=== PATIENT | female | born 1975 | race Caucasian/White ===

== ENCOUNTER 2023-02-04 14:08 | Emergency (ER) | payer SELFPAY ==
[2023-02-04] VITALS (10 sets, daily range): BP systolic 97–146; BP diastolic 68–85; PULSE 73–84; RESP 14–27; TEMP 36.4; O2SAT 98–99; BMI 24.6
--- NOTE | 2023-02-04 14:31 | ECG_ITS ---
The [facility] Test Date: 2023-02-04 Pat Name: CONTRERAS PARKER Department: Room: - Gender: Female Lead Systems Developer: : 1975 Requested By: Order Number: [id number] Reading MD: DU RAYGOZA Measurements Intervals [place] Rate: 75 P: 79 HI: 160 QRS: 90 QRSD: 88 T: 66 QT: 380 QTc: 409 Interpretive Statements 1100 Sinus rhythm 9110 normal ECG No previous ECG available for comparison Electronically Signed On 02-05-2023 19:58:29 EST by DU RAYGOZA
--- NOTE | 2023-02-04 14:31 | XR_ITS ---
The [address] [address] Patient Name: CONTRERAS PARKER MRN: [id number] date: 1975 Sex: F Assigned Patient Location: ER Current Patient Location: ER Accession/Order Number: [id number] Exam Date: 02/04/2023 14:48 Report Date: 02/04/2023 15:17 At the request of: ERNESTO RAMIRES Procedure: XR chest 1V EXAMINATION: XR chest 1V HISTORY: Palpitations COMPARISON: None. TECHNIQUE: Portable chest FINDINGS: The lung parenchyma is free of consolidation or infiltrate. No pneumothorax or pleural effusion. The cardiac, mediastinal and hilar contours are normal. The visualized osseous structures exhibit no gross abnormality. XR/XR chest 1V IMPRESSION: No acute cardiopulmonary abnormality. Electronically authenticated by: YARIEL SHAW Date: 02/04/2023 15:17
--- NOTE | 2023-02-04 14:32 | ED_ITS ---
HPI - Arrhythmia/Palpitations General Chief Complaint: Arrhythmia/Palpitations Stated Complaint: FAST HEART RATE Time Seen by Provider: 02/04/23 14:20 Source: patient Mode of arrival: walk-in History of Present Illness HPI narrative: Patient felt her heart racing while at work and developed dizziness and numbness/tingling of the lips and face. She told me that she felt like I was going to pass out. She left work and went home to try and rest. The she came to the ED for evaluation. The symptoms are now gone . No prior history of similar. She denied any personal cardiac history. Patient is a smoker. Has not seen a physician for decades. Takes no prescribed meds or OTC supplements. Works as a cook. Related Data Home Medications Medication Instructions Recorded Confirmed No Known Home Medications 02/04/23 02/04/23 Allergies Allergy/AdvReac Type Severity Reaction Status Date / Time codeine Allergy Severe Verified 02/04/23 14:17 Penicillins Allergy Severe Verified 02/04/23 14:17 Exam Narrative Exam Narrative: Nurses notes and vital signs reviewed and patient is not hypoxic. afebrile General: Well-appearing and in no apparent distress. Skin: Warm, dry, no pallor noted. No rash. Head: Normocephalic, atraumatic. Neck: Supple, non-tender. Eye: Pupils are equal, round and EOMI. No scleral icterus. Ears, Nose, Mouth, and Throat: TM are clear, no nasal mucosal hypertrophy. Oral mucosa is moist, no posterior oropharynx erythema, uvula is mid-line Cardiovascular: Regular Rate and Rhythm without murmur, gallop or rub. Respiratory: No accessory muscle use or respiratory distress. Lungs are clear to auscultation, no wheezing, rales or rhonchi Musculoskeletal: normal ROM, no calf or popliteal tenderness, no lower extremity edema/swelling GI: Abdomen is soft, non-distended. Normal bowel sounds. No masses appreciated. No tenderness to palpation. No rebound, guarding, or rigidity noted. Neurological: A&O x4. No cranial nerve dysfunction observed. No truncal ataxia. Moves all extremities. Sensation intact. Psychiatric: Cooperative and interactive. Normal mood and affect. Constitutional Vital Signs, click to edit/add: Last Vital Signs Temp 97.5 F L 02/04/23 14:14 Pulse 73 02/04/23 15:10 Resp 27 H 02/04/23 15:10 BP 97/68 02/04/23 15:00 Pulse Ox 98 02/04/23 14:15 O2 Del Method Room Air 02/04/23 14:14 Course Vital Signs Vital signs: Vital Signs Temperature 97.5 F L 02/04/23 14:14 Pulse Rate 79 02/04/23 14:14 Respiratory Rate 20 02/04/23 14:14 Blood Pressure 146/85 H 02/04/23 14:14 Pulse Oximetry 99 02/04/23 14:14 Oxygen Delivery Method Room Air 02/04/23 14:14 Temperature 97.5 F L 02/04/23 14:14 Pulse Rate 73 02/04/23 15:10 Respiratory Rate 27 H 02/04/23 15:10 Blood Pressure 97/68 02/04/23 15:00 Pulse Oximetry 98 02/04/23 14:15 Oxygen Delivery Method Room Air 02/04/23 14:14 MDM - Arrhythmia/Palpitations MDM Narrative Medical decision making narrative: Patient was placed on conveyor monitor and EKG obtained. Blood drawn and sent for evaluation. CXR obtained CBC, BMP and TSH normal. EKG normal. CXR normal. On reassessment the patient still has some residual tingling on both sides of the face and across the mouth. No dysrhythmia observed in the ED. Electrolytes are normal. No chest pain, pressure, shortness of breath. Patient informed of results. I do not see a reason based on her current exam, signs and symptoms to admit her. However she does not have a local PCP. She was given referral information for local PCPs taking new patients. Discussed smoking cessation. Also discussed ED return for any return of worrisome symptoms. Lab Data Attestation: I reviewed the patient's lab results. Labs: Lab Results 02/04/23 Range/Units 14:25 WBC 11.0 (4.0-11.0) 10^3/uL RBC 4.86 (4.20-5.40) 10^6/uL Hgb 13.2 (12.0-16.0) g/dL Hct 40.3 (36.0-48.0) % MCV 82.9 (81.0-99.0) fL MCH 27.2 (26.7-34.0) pg MCHC 32.8 (29.9-35.2) g/dL RDW 16.8 H (11.0-15.0) % Plt Count 241 (150-450) 10^3/uL MPV 11.0 (9.5-13.5) fL Neut % (Auto) 59.7 (43.0-75.0) % Lymph % (Auto) 33.6 (20.5-60.0) % [place] % (Auto) 4.1 (1.7-12.0) % Eos % (Auto) 1.8 (0.9-7.0) % Baso % (Auto) 0.6 (0.2-2.0) % Neut # (Auto) 6.5 (1.4-6.5) 10^3/uL Lymph # (Auto) 3.7 (1.2-3.8) 10^3/uL [place] # (Auto) 0.5 (0.3-0.8) 10^3/uL Eos # (Auto) 0.2 (0.0-0.7) 10^3/uL Baso # (Auto) 0.1 (0.0-0.1) 10^3/uL Abs Immat Gran (auto) 0.02 (0.00-0.03) 10^3/uL Imm/Tot Granulo (auto) 0.2 (0.0-0.5) % Sodium 141 (136-145) mmol/L Potassium 3.6 (3.5-5.1) mmol/L Chloride 103 (98-107) mmol/L Carbon Dioxide 27.5 (21.0-32.0) mmol/L Anion Gap 14.1 BUN 16.0 (7.0-18.0) mg/dL Creatinine 0.92 (0.55-1.02) mg/dL Est GFR ( Amer) >60 (>=60) Est GFR (Non-Af Amer) >60 (>=60) BUN/Creatinine Ratio 17.4 Glucose 125 H (74-106) mg/dL Calcium 8.5 (8.5-10.1) mg/dL TSH 3.603 (0.358-3.740) uIU/mL Imaging Data Chest x-ray: Radiologist's impression: Patient Name: CONTRERAS PARKER MRN: [id number] date: 1975 Sex: F Assigned Patient Location: ER Current Patient Location: ER Accession/Order Number: [id number] Exam Date: 02/04/2023 14:48 Report Date: 02/04/2023 15:17 At the request of: ERNESTO RAMIRES Procedure: XR chest 1V EXAMINATION: XR chest 1V HISTORY: Palpitations COMPARISON: None. TECHNIQUE: Portable chest FINDINGS: The lung parenchyma is free of consolidation or infiltrate. No pneumothorax or pleural effusion. The cardiac, mediastinal and hilar contours are normal. The visualized osseous structures exhibit no gross abnormality. IMPRESSION: No acute cardiopulmonary abnormality. Electronically authenticated by: YARIEL SHAW Date: 02/04/2023 15:17 ECG Data Attestation: I personally reviewed and interpreted this ECG as follows: Interpretation: EKG interpretation: Emergency Department physician interpretation. Normal sinus rhythm at 75bpm. Normal axis, normal intervals and no ST segment elevation or depression. Normal EKG. Discharge Plan Discharge Chief Complaint: Arrhythmia/Palpitations Clinical Impression: Palpitations, Facial paresthesia Time of Disposition Decision: 15:27 Prescriptions / Home Meds: No Action No Known Home Medications Instructions: Heart Palpitations (ED), Paresthesia (ED) Stand Alone Forms: Portal Instructions Referrals: HUSSEIN HOLMAN APRN [Physician] - As soon as possible
[2023-02-04 14:55] LABS: Basophils Absolute Auto 0.1 10^3/uL (0.0-0.1); Basophils Percent Auto 0.6 % (0.2-2.0); Eosinophils Absolute Auto 0.2 10^3/uL (0.0-0.7); Eosinophils Percent Auto 1.8 % (0.9-7.0); Hematocrit 40.3 % (36.0-48.0); Hemoglobin 13.2 g/dL (12.0-16.0); Immature Granulocytes Abs Auto 0.02 10^3/uL (0.00-0.03); Immature Granulocytes Pct Auto 0.2 % (0.0-0.5); Lymphocytes Absolute Auto 3.7 10^3/uL (1.2-3.8); Lymphocytes Percent Auto 33.6 % (20.5-60.0); Mean Corpuscular HGB Conc 32.8 g/dL (29.9-35.2); Mean Corpuscular Hemoglobin 27.2 pg (26.7-34.0); Mean Corpuscular Volume 82.9 fL (81.0-99.0); Monocytes Absolute Auto 0.5 10^3/uL (0.3-0.8); Monocytes Percent Auto 4.1 % (1.7-12.0); Neutrophils Absolute Auto 6.5 10^3/uL (1.4-6.5); Neutrophils Percent Auto 59.7 % (43.0-75.0); Platelet Count 241 10^3/uL (150-450); Red Blood Count 4.86 10^6/uL (4.20-5.40); Red Cell Distribution Width 16.8 % (11.0-15.0)
[2023-02-04 15:16] LABS: Anion Gap 14.1; BUN Creatinine Ratio 17.4; Calcium 8.5 mg/dL (8.5-10.1); Carbon Dioxide 27.5 mmol/L (21.0-32.0); Chloride 103 mmol/L (98-107); Estimated GFR (African America >60 (>=60); Estimated GFR (Non-African Ame >60 (>=60); Glucose 125 mg/dL (74-106); Potassium 3.6 mmol/L (3.5-5.1); Sodium 141 mmol/L (136-145); Thyroid Stimulating Hormone 3.603 uIU/mL (0.358-3.740)
== END 2023-02-04 15:44 | disposition home or self-care (01) ==
PROVIDERS: Emergency Provider Emergency Medicine
DX: R00.2 Palpitations (principal); R20.2 Paresthesia of skin; F17.210 Nicotine dependence, cigarettes, uncomplicated
CPT/HCPCS: 36415; 71045; 80048; 84443; 85025; 93005; 99285

== ENCOUNTER 2024-03-23 08:02 | Emergency (ER) | payer SELFPAY ==
[2024-03-23 08:07] VITALS: BP 138/84; PULSE 58; TEMP 36.8; O2SAT 99; BMI 26.5
--- NOTE | 2024-03-23 08:21 | CT_ITS ---
The [address] [address] Patient Name: CONTRERAS PARKER MRN: [id number] date: 1975 Sex: F Assigned Patient Location: ED.MAIN Current Patient Location: ED.MAIN Accession/Order Number: [id number] Exam Date: 03/23/2024 08:50 Report Date: 03/23/2024 09:39 At the request of: SPRING DOBBINS Procedure: CT abdomen pelvis w con EXAM: CT abdomen pelvis w con HISTORY: Abd pain. COMPARISON: None. TECHNIQUE: Dose reduction techniques were achieved by using automated exposure control and/or adjustment of mA and/or kV according to patient size and/or use of iterative reconstruction technique.CT of the abdomen and pelvis with contrast. Standard protocol. Coronal and sagittal reformations were obtained. FINDINGS: Mild posterior dependent atelectasis of the bilateral lower lobes. Lung bases are otherwise clear. Gallbladder, spleen, pancreas, kidneys, distal esophagus, stomach, and adrenal glands are normal. Small nonspecific hypodensities of the inferior aspect of the right lobe of the liver, likely cysts. There is thickening of the proximal small bowel loops, may represent enteritis. No colonic dilation. No pericolonic fat stranding. Appendix is normal. Uterus is unremarkable by this technique. No inguinal, pelvic, or retroperitoneal adenopathy. Appendix is normal. No bladder wall thickening. No acute osseous abnormality. CT/CT abdomen pelvis w con IMPRESSION: 1. Nonspecific thickening of the proximal small bowel loops, may represent enteritis. 2. No colonic dilation. No pericolonic fat stranding. Appendix is normal. 3. Gallbladder is normal. 4. Other findings as described. Electronically authenticated by: TENZIN TELLO Date: 03/23/2024 09:39
--- NOTE | 2024-03-23 08:23 | ED_ITS ---
HPI HPI - General Adult General Chief complaint: Abdominal Pain Stated complaint: ABDOMINAL PAIN Time Seen by Provider: 03/23/24 08:14 Source: patient Mode of arrival: walk-in Limitations: no limitations History of Present Illness HPI narrative: Patient presents to ED complaining of abdominal pain. Patient states that she went to bed and everything was normal last night, she got up this morning and was still feeling okay. She said she went to work this morning at [employer] and started to get some sharp stabbing abdominal pains. She said the pain was doubling her over. When she explains where the pain is is more suprapubic and left lower quadrant area. She states she has never had a colonoscopy and she does not have any known history of diverticulitis or diverticulosis. She has never really had any bowel issues in the past. She did have a normal bowel movement this morning without any issues. She does report slight nausea but no vomiting. No fevers. No other complaints at this time. Related Data Previous Rx's ?Medication ?Instructions ?Recorded ondansetron 4 mg disintegrating 4 mg PO DAILY PRN nausea and 03/23/24 tablet vomiting #15 tabs Allergies Allergy/AdvReac Type Severity Reaction Status Date / Time codeine Allergy Severe Verified 02/04/23 14:17 Penicillins Allergy Severe Verified 02/04/23 14:17 Opioid HPI Opioid Management Most Recent Opioid Data: Last Pain Scale 8 03/23/24 08:34 03/23/24 Last MAR Pain Assessment 03/23/24 08:34 Review of Systems ROS Status of ROS 10 or more systems reviewed and unremark able except as noted in history and below PFSH PFSH Social History Little interest or pleasure in doing things: not at all Feeling down, depressed, or hopeless: not at all Exam Narrative Exam Narrative: Time Seen: [] Vital Signs: [Per nurse's notes.] General: [Alert] Skin: [Warm, dry, no rash.] Head: [Normocephalic, atraumatic.] Neck: [Supple, trachea midline.] Eye: [Pupils are equal, round and reactive to light, extraocular movements are intact, normal conjunctiva.] Ears, nose, mouth and throat: oral mucosa moist. Cardiovascular: [Regular rate and rhythm, no murmur.] Respiratory: [Lungs are clear to auscultation, respirations are non-labored, breath sounds are equal.] Chest wall: [No tenderness, no deformity.] Gastrointestinal: [Soft, tender to palpation suprapubic and left lower quadrant, non distended, normal bowel sounds.] MSK: 5 out of 5 muscle strength x 4 extremities no calf pain or edema Lymphatics: [No lymphadenopathy.] Psychiatric: [Cooperative, appropriate mood & affect.] Neurological: [Alert and oriented to person, place, time, and situation, no focal neurological deficit observed.] Constitutional Vital Signs, click to edit/add: Last Vital Signs Temp 98.2 F 03/23/24 08:07 Pulse 58 L 03/23/24 08:07 Resp 18 03/23/24 08:07 BP 138/84 03/23/24 08:07 Pulse Ox 99 03/23/24 08:07 Course Vital Signs Vital signs: Vital Signs Temperature 98.2 F 03/23/24 08:07 Pulse Rate 58 L 03/23/24 08:07 Respiratory Rate 18 03/23/24 08:07 Blood Pressure 138/84 03/23/24 08:07 Pulse Oximetry 99 03/23/24 08:07 Temperature 98.2 F 03/23/24 08:07 Pulse Rate 58 L 03/23/24 08:07 Respiratory Rate 18 03/23/24 08:07 Blood Pressure 138/84 03/23/24 08:07 Pulse Oximetry 99 03/23/24 08:07 Medical Decision Making MDM Narrative Medical decision making narrative: Patient's labs are negative for any acute findings. She does have nonspecific inflammation of the small bowel consistent with most likely enteritis. Normal appendix. No evidence of diverticulitis or bowel obstruction. Patient was given Zofran for home and today and tomorrow off work. Patient is to return to ED if worsening symptoms, severe pain vomiting blood in the stool or any further concerns. Patient is comfortable with care plan for home. Differential Diagnosis Differential Diagnosis: Gastroenteritis, diverticulitis, acute appendicitis, acute cholecystitis Lab Data Lab results reviewed: Yes I reviewed the patient's lab results Labs: Lab Results 03/23/24 03/23/24 Range/Units 08:15 08:25 WBC 12.1 H (4.0-11.0) 10^3/uL RBC 4.74 (4.20-5.40) 10^6/uL Hgb 13.1 (12.0-16.0) g/dL Hct 39.4 (36.0-48.0) % MCV 83.1 (81.0-99.0) fL MCH 27.6 (26.7-34.0) pg MCHC 33.2 (29.9-35.2) g/dL RDW 16.0 H (11.0-15.0) % Plt Count 208 (150-450) 10^3/uL MPV 10.9 (9.5-13.5) fL Neut % (Auto) 61.5 (43.0-75.0) % Lymph % (Auto) 29.6 (20.5-60.0) % [place] % (Auto) 4.8 (1.7-12.0) % Eos % (Auto) 3.3 (0.9-7.0) % Baso % (Auto) 0.6 (0.2-2.0) % Neut # (Auto) 7.5 H (1.4-6.5) 10^3/uL Lymph # (Auto) 3.6 (1.2-3.8) 10^3/uL [place] # (Auto) 0.6 (0.3-0.8) 10^3/uL Eos # (Auto) 0.4 (0.0-0.7) 10^3/uL Baso # (Auto) 0.1 (0.0-0.1) 10^3/uL Abs Immat Gran (auto) 0.03 (0.00-0.03) 10^3/uL Imm/Tot Granulo (auto) 0.2 (0.0-0.5) % Sodium 141 (136-145) mmol/L Potassium 4.2 (3.5-5.1) mmol/L Chloride 106 (98-107) mmol/L Carbon Dioxide 25.3 (21.0-32.0) mmol/L Anion Gap 13.9 BUN 15.0 (7.0-18.0) mg/dL Creatinine 0.73 (0.55-1.02) mg/dL Est GFR ( Amer) >60 (>=60 mL/min/1.73m^2) Est GFR (Non-Af Amer) >60 (>=60 mL/min/1.73m^2) BUN/Creatinine Ratio 20.5 Glucose 119 H (74-106) mg/dL Calcium 8.7 (8.5-10.1) mg/dL Total Bilirubin 0.4 (0.2-1.0) mg/dL AST 19 (15-37) U/L ALT 24 (14-59) U/L Alkaline Phosphatase 84 (46-116) U/L Total Protein 7.0 (6.4-8.2) g/dL Albumin 3.5 (3.4-5.0) g/dL Globulin 3.5 g/dL Albumin/Globulin Ratio 1.0 Urine Color Lt. yellow (YELLOW) Urine Clarity Clear (CLEAR) Urine pH 6.0 (5.0-9.0) Ur Specific [place] 1.020 (1.005-1.025) Urine Protein Negative (NEG/TRACE) mg/dL Urine Glucose (UA) Negative (NEGATIVE) mg/dL Urine Ketones Negative (NEGATIVE) mg/dL Urine Occult Blood Small A (NEGATIVE) Urine Nitrite Negative (NEGATIVE) Urine Bilirubin Negative (NEGATIVE) Urine Urobilinogen 0.2 (0.2-1.0) EU/dL Ur Leukocyte Esterase Small A (NEGATIVE) Urine RBC 0-2 (0-2) #/HPF Urine WBC 0-2 A (NONE SEEN) #/HPF Ur Squamous Epith Cells Few A (NONE/RARE) #/LPF Urine Crystals None seen (None Seen) #/HPF Urine Bacteria Trace A (NONE SEEN) #/HPF Urine Casts None seen (NONE SEEN) #/LPF Urine Mucus None seen (NONE SEEN) Imaging Data CT scan - abdomen: Radiologist's impression: ITS Impressions Abdomen/Pelvis CT 03/23/24 08:21 IMPRESSION: 1. Nonspecific thickening of the proximal small bowel loops, may represent enteritis. 2. No colonic dilation. No pericolonic fat stranding. Appendix is normal. 3. Gallbladder is normal. 4. Other findings as described. Electronically authenticated by: TENZIN TELLO Date: 03/23/2024 09:35 Discharge Plan Discharge Chief Complaint: Abdominal Pain Clinical Impression: Gastroenteritis Patient Disposition: Home, Self-Care Time of Disposition Decision: 09:35 Condition: Good Mode of Transportation: Private Vehicle Prescriptions / Home Meds: New ondansetron 4 mg tablet,disintegrating 4 mg PO DAILY PRN (Reason: nausea and vomiting) Qty: 15 0RF Print Language: Malay Instructions: Gastroenteritis (ED) Referrals: BARRIE MEREDITH [Physician] - 1 week Physician,Non-Staff, MD [Primary Care Provider] - 1 week
--- OUTSIDE RECORDS SUMMARY | 2024-03-23 08:24 | XMS_ITS | CCD ---
Author Organization [facility] Care Team Providers Care Quality Checker Name Role Phone REQUEST, DR NONE LISTED Primary Care Unavaila citlalli RAMIRES, DR OROZCO Admitting Unavailable IKE, DR OROZCO Attending Unavailable IKE, DR OROZCO Consulting Unavailable Allergies Allergy Classification Reported Allergen(s) Allergy Type Date of Onset Reaction(s) Facility (1 source) Codeine Drug Allergy 04-06-2013 [facility] (1 source) Penicillins Drug allergy (disorder) 04-06-2013 [facility] Problems Active Problems Problem Classification Problem Date Documented Da te Episodic/Chronic Residual codes; unclassified (1 source) Procedure and treatment not carried out due to patient leaving prior to being seen by health care provider; Translations: [PROC AND TX NOT CARRIED OUT PT LEAVE] Onset: 03-02-2022 Episodic Unclassified (2 sources) COUGH, UNSPECIFIED; Translations: [COUGH, UNSPECIFIED] Onset: 03-02-2022 Unclassified (1 source) CONTACT W/AND (SUSP) EXPOS COVID-19; Translations: [CONTACT W/AND (SUSP) EXPOS COVID-19] Onset: 03-02-2022 Past or Other Problems Problem Classification Problem Date Documented Da te Episodic/Chronic Unclassified (1 source) COUGH, UNSPECIFIED; Translations: [COUGH, UNSPECIFIED] Onset: 02-28-2022 Results Test Name Value Interpretation Reference Range Facil ity Covid-19 PCR (CVDTBH)on 02-04 SARS-CoV-2 (COVID-19) RNA ROCHELLE+probe Ql (Unsp spec) Not detected Normal NOT DETECTED [facility] Comment on above: Result Comment: This test is not yet approved or cleared by the [place] FDA. When there are no FDA-approved or cleared tests available, and other criteria are met, FDA can make tests available under an emergency access mechanism called an Emergency Use Authorization (EUA). The EUA for this test is supported by the Nutrition Services Assistant of Health and Human Service's (HHS's) declaration that circumstances exist to justify the emergency use of in vitro diagnostics for the detection and/or diagnosis of the virus that causes COVID-19. This EUA will remain in effect (meaning this test can be used) for the duration of the COVID-19 declaration justifying emergency of IVDs, unless it is terminated or revoked by FDA (after which the test may no longer be used). When diagnostic testing is negative, the possibility of a false negative should be considered in the context of a patient's recent exposures and the presence of clinical signs and symptoms consistent with SARS-CoV-2. Performed By: #### C VDTB #### [facility] [address] [place] [address] Dr. Camden Mcmullen INFLUENZA A AND B [facility] 02-28 [facility] SEE BELOW Normal [facility] Comment on above: Result Comment: Nega tive for Flu A protein angiten. Infection due to Flu A cannot be ruled out. Flu A angiten in the sample may be below the detection limit of the test. Performed By: #### I NFLUAB #### [facility] [address] [place] [address] Dr. Camden Mcmullen [facility] SEE BELOW Normal [facility] Comment on above: Result Comment: Nega tive for Flu B protein antigen. Infection due to Flu B cannot be ruled out. Flu B antigen in the sample may be below the detection limit of the test. Performed By: #### I NFLUAB #### [facility] [address] [place] [address] Dr. Camden Mcmullen INFLUENZA A AG Negative Normal NEGATIVE SEE COMMENT [facility] Comment on above: Performed By: #### I NFLUAB #### [facility] [address] [place] [address] Dr. Camden Mcmullen INFLUENZA B AG Negative Normal NEGATIVE SEE COMMENT [facility] Comment on above: Performed By: #### I NFLUAB #### [facility] [address] [place] [address] Dr. Camden Mcmullen INTERNAL CONTROLS Within Normal Limits Normal Wi thin Normal Limits [facility] Comment on above: Performed By: #### I NFLUAB #### [facility] [address] [address] [address] Camden Mcmullen Gynecology Office/Clinic Not guerline 09-26-2018 Gynecology Office/Clinic Note Chief Complaint Follow up from [place] [facility] for cysts Pt states she is feeling fine now Obstetric History History (0,0,0,4) # 1 Baby 1 Outcome Date: 12/10/1989 Outcome: Live Outcome or Result: Vaginal Gender: Female Gest Age: 40 weeks Wt: -- Hospital: -- [facility]: -- Child's Name: -- Baby's Father: -- # 2 Baby 1 Outcome Date: 09/08/1993 Outcome: Live Outcome or Result: Vaginal Gender: Female Gest Age: 40 weeks Wt: -- Hospital: -- [facility]: -- Child's Name: -- Baby's Father: -- # 3 Baby 1 Outcome Date: 07/06/1995 Outcome: Live Outcome or Result: Vaginal Gender: Female Gest Age: 40 weeks Wt: -- Hospital: -- [facility]: -- Child's Name: -- Baby's Father: -- # 4 Baby 1 Outcome Date: 01/31/1999 Outcome: Live Outcome or Result: Vaginal Gender: Female Gest Age: 40 weeks Wt: -- Hospital: -- [facility]: -- Child's Name: -- Baby's Father: -- History of Present Illness Went to [place] ED for pelvic pain, Did not have a period for 5 months then had severe lower pelvic pain and a heavy period that lasted about 2-3 days, no ovarian cyst was see Review of Systems PHQ Score Initial Depression Screen Score: 0 Denies chest pain, shortness of breath, fever, chills, nausea, vomiting. States normal bowel and bladder function without hematochezia, diarrhea, constipation, dysuria or hematuria. No myalgias or arthralgias. No weakness or paresthesias. No new rashes or changing moles. Physical Exam Vitals & Measurements HR: 64(Peripheral) RR: 16 BP: 116/70 HT: 158 cm WT: 61.2 kg BMI: 24.52 General exam: Constitutional: alert, oriented, in no acute distress, well hydrated, well developed, well nourished. Skin: normal color, no rashes, no lesions, no unusual bruising. tatoos Head: Atraumatic, Normocephalic, sclera anicteric, trachea midline, hearing grossly normal with conversational voice. Mouth: normal dentition Respiratory: No respiratory distress, CTA, Breath sounds without rales, rhonchi or wheezes. Comfortable on room air. CV: no lower extremity edema Breast: Deferred Abdomen: Soft, nontender, nondistended, no guarding, no masses Pelvic: Vulva: normal in appearance, pubic hair is normal Antoine stage, no lesions, no masses Urethra: no masses, non-tender, no discharge Bladder: non-distended, non-tender Vagina: mucosa appropriately estrogenized, normal rugae, no lesions, no masses, adequate support Cervix: Midposition, no lesions, parous, no motion tenderness Uterus: Smooth, nontender, adequate support without masses, anteverted, slightly enlarged Adnexa: No masses, nontender Extremities: No deformities, no cyanosis Neuro: Normal sensation, Cranial Nerves II-XII grossly intact, gait normal Psyche: Pleasant, calm affect with conversation, mood appropriate, good eye contact Assessment/Plan 1. DUB (dysfunctional uterine bleeding) (N93.8: Other specified abnormal uterine and vaginal bleeding) monitor periods for now explained that she is perimenpausal and may start seeing irregular bleeding with skipping. Schedule pap and mammo 2. Pain pelvic (R10.2: Pelvic and perineal pain) None currently, monitor for now Follow-up No qualifying data available Problem List/Past Medical History Ongoing No qualifying data Historical Procedure/Surgical History Tubal sterilisation (1996). Medications ibuprofen Allergies codeine (Hives) penicillin (Hives) Social History Sexual Sexually active: No., 09/26/2018 Tobacco 10 or more cigarettes (1/2 pack or more)/day in last 30 days Tobacco Use:. Yes, 09/26/2018 Family History Family history is negative Normal [facility] Comment on above: Result Comment: Elec tronically Signed By: Karmen DODSON, Gloria Espinal.[email or web address]\Date and Time Signed: 09/26/18 13:55 EDT Encounters Encounter Date Encounter Type Care Provider Facility Start: 02-28-2022 End: 02-28-[address] NONE LISTED REQUEST Facility: Payers Date Payer Category Payer Unknown [id number] 1961 Self-pay [id number] Summary Purpose Family History No Family History Records FoundNo Family History Records Found Advance Directives No Advanced Directives Records FoundNo Advanced Directives Records Found Additional Source Comments INFORMATION SOURCE (unrecogn ized section and content) DATE CREATED AUTHOR 09/27/2018 [facility] DATE CREATED AUTHOR AUTHOR'S ORGANIZ [facility] 03/02/2022 [facility] FOR RECORDS PERTAINING TO PATIENTS WHO ARE OR HAVE BEEN ENROLLED IN A CHEMICAL DEPENDENCY/SUBSTANCEABUSE PROGRAM, SOME INFORMATION MAY BE OMITTED. This clinical summary was aggregated from multiple sources. Caution should be exercised in using it in the provision of clinical care. This summary normalizes information from multiple sources, and as a consequence, information in this document may materially change the coding, format and clinical context of patient data. In addition, data may be omitted in some cases. CLINICAL DECISIONS SHOULD BE BASED ON THE PRIMARY CLINICAL RECORDS. [facility] [employer] provides no warranty or guarantee of the accuracy or completeness of information in this document.
[2024-03-23] MEDS: ONDANSETRON PF 4 MG/2 ML VIAL IV (08:34)
[2024-03-23] MEDS: KETOROLAC TROMETHAMINE 30 MG/ML VIAL 15 MG IVP (08:34)
[2024-03-23] MEDS: 0.9 % SODIUM CHLORIDE 1,000 ML 1000 ML IV (08:34)
[2024-03-23 08:38] LABS: Bilirubin Urine NEGATIVE (NEGATIVE); Blood Urine SMALL (NEGATIVE); Clarity Urine CLEAR (CLEAR); Color Urine LT. YELLOW (YELLOW); Glucose Urine UA NEGATIVE (NEGATIVE); Ketones Urine NEGATIVE (NEGATIVE); Leukocyte Esterase Urine SMALL (NEGATIVE); Nitrite Urine NEGATIVE (NEGATIVE); Protein Urine NEGATIVE (NEG/TRACE); Urobilinogen Urine 0.2 EU/dL (0.2-1.0)
[2024-03-23 08:40] LABS: Urine Microscopic Indicated YES
[2024-03-23 08:41] LABS: Basophils Absolute Auto 0.1 10^3/uL (0.0-0.1); Basophils Percent Auto 0.6 % (0.2-2.0); Eosinophils Absolute Auto 0.4 10^3/uL (0.0-0.7); Eosinophils Percent Auto 3.3 % (0.9-7.0); Hematocrit 39.4 % (36.0-48.0); Hemoglobin 13.1 g/dL (12.0-16.0); Immature Granulocytes Abs Auto 0.03 10^3/uL (0.00-0.03); Immature Granulocytes Pct Auto 0.2 % (0.0-0.5); Lymphocytes Absolute Auto 3.6 10^3/uL (1.2-3.8); Lymphocytes Percent Auto 29.6 % (20.5-60.0); Mean Corpuscular HGB Conc 33.2 g/dL (29.9-35.2); Mean Corpuscular Hemoglobin 27.6 pg (26.7-34.0); Mean Corpuscular Volume 83.1 fL (81.0-99.0); Mean Platelet Volume 10.9 fL (9.5-13.5); Monocytes Absolute Auto 0.6 10^3/uL (0.3-0.8); Monocytes Percent Auto 4.8 % (1.7-12.0); Neutrophils Absolute Auto 7.5 10^3/uL (1.4-6.5); Neutrophils Percent Auto 61.5 % (43.0-75.0); Platelet Count 208 10^3/uL (150-450); Red Blood Count 4.74 10^6/uL (4.20-5.40); White Blood Count 12.1 10^3/uL (4.0-11.0)
[2024-03-23 09:00] LABS: Alanine Aminotransferase 24 U/L (14-59); Albumin Level 3.5 g/dL (3.4-5.0); Alkaline Phosphatase 84 U/L (46-116); Anion Gap 13.9; Aspartate Amino Transferase 19 U/L (15-37); BUN Creatinine Ratio 20.5; Bilirubin Total 0.4 mg/dL (0.2-1.0); Calcium 8.7 mg/dL (8.5-10.1); Carbon Dioxide 25.3 mmol/L (21.0-32.0); Chloride 106 mmol/L (98-107); Estimated GFR (African America >60 (>=60 mL/min/1.73m^2); Estimated GFR (Non-African Ame >60 (>=60 mL/min/1.73m^2); Globulin 3.5 g/dL; Glucose 119 mg/dL (74-106); Potassium 4.2 mmol/L (3.5-5.1); Sodium 141 mmol/L (136-145)
[2024-03-23 09:23] LABS: Bacteria Urine TRACE #/HPF (NONE SEEN); Cast Seen? NONE SEEN #/LPF (NONE SEEN); Crystals Seen? None Seen #/HPF (None Seen); Mucus Urine NONE SEEN (NONE SEEN); RBC Urine 0-2 #/HPF (0-2); Squamous Epithelial Cell Urine FEW #/LPF (NONE/RARE); WBC Urine 0-2 #/HPF (NONE SEEN)
== END 2024-03-23 09:50 | disposition home or self-care (01) ==
PROVIDERS: Emergency Provider Emergency Medicine
DX: K52.9 Noninfective gastroenteritis and colitis, unspecified (principal)
CPT/HCPCS: 36415; 74177; 80053; 81001; 85025; 96361; 96374; 96375; 99284; J1885; J2405; Q9967